=== PATIENT | female | born 1985 | race Caucasian/White ===

== ENCOUNTER 2018-03-17 01:24 | Inpatient (IN) | payer OTHER ==
[2018-03-17] MEDS ORDERED: Sodium Chloride 0.9% 10 ML Syringe FLUSH PRN (01:55)
[2018-03-17] MEDS ORDERED: Ampicillin 2 GM in Sodium Chloride 0.9% 100 ML IV ONE (02:00)
[2018-03-17] MEDS ORDERED: Oxytocin/Lactated Ringers 10 UNIT/1,000 ML BAG IV SCH (02:00)
[2018-03-17] MEDS ORDERED: Lactated Ringers 1,000 ML IV SCH (02:00)
--- NOTE | 2018-03-17 03:25 | PCM.LDHP ---
L&D History of Present Illness - General Date of Service: 03/17/18 Admit Problem/Dx: Patient Status Order with Admit Dx/Problem 03/17/18 01:55 Patient Status [ADT] Routine Admission Diagnosis/Problem Admission Diagnosis/Problem Source of Information: Patient History Limitations: Reports: No Limitations - History of Present Illness Introduction:: 32 -year-old 004 JASMIN 03/25/18 at 38 weeks 6 days estimated gestational age presented to labor and delivery 6 cm dilated with contractions every 3 minutes lasting approximately 60 seconds GBS positive antibiotics have been ordered patient may not be able to complete second course of antibiotics before delivery. Amniotomy performed at 0304 hrs. clear fluid cervix is 8 cm dilated. Blood type A positive. Antibody screen negative. Hemoglobin hematocrit on reported 36.9 hematocrit and hemoglobin 11.8 platelets 313,000. Rubella negative syphilis screen negative hepatitis B surface antigen negative HIV "normal" on 12/13/17 hemoglobin 12.1 platelets 308,000. One hour OB glucose screen 109. Antibody screen negative. GBS to take it on 02/21/18. Quality: Reports: Ache, Dull, Pressure Improves with: Reports: None Worsens with: Reports: None - Related Data Allergies/Adverse Reactions: Allergies Allergy/AdvReac Type Severity Reaction Status Date / Time red dye AdvReac Headache Verified 12/08/16 14:37 Home Medications: Home Meds Multivitamins [Childrens Chewable Vitamin] 1 tab PO DAILY 11/18/14 [History] Ibuprofen [IJD: Ibuprofen] 600 mg PO Q6H PRN #30 tablet 12/08/16 [Rx] Past Medical History HEENT History: Reports: None Genitourinary History: Reports: Other (See Below) Other Genitourinary History: Reccurent yeast infections [employer] History: Reports: - Past Surgical History HEENT Surgical History: Reports: Oral Surgery Female Surgical History: Reports: Other (See Below) Other Female Surgeries/Procedures: evacuation of a hematoma Social & Family History - Family History Family Medical History: Noncontributory - Tobacco Use Smoking Status *Q: Never Smoker Years of Tobacco use: 6 Used Tobacco, but Quit: Yes Month/Year Tobacco Last Used: Unk Second Hand Smoke Exposure: No - Caffeine Use Caffeine Use: Reports: None - Alcohol Use Days Per Week of Alcohol Use: 0 - Recreational Drug Use Recreational Drug Use: No H&P Review of Systems - Review of Systems: Review Of Systems: See Below General: Reports: No Symptoms HEENT: Reports: No Symptoms Pulmonary: Reports: No Symptoms Cardiovascular: Reports: No Symptoms Gastrointestinal: Reports: No Symptoms Genitourinary: Reports: No Symptoms Musculoskeletal: Reports: No Symptoms Skin: Reports: No Symptoms Psychiatric: Reports: No Symptoms Neurological: Reports: No Symptoms Hematologic/Lymphatic: Reports: No Symptoms Immunologic: Reports: No Symptoms L&D Exam - Exam Exam: See Below - Vital Signs Vital Signs: Last Vital Signs Temp 98.5 F 03/17/18 01:55 Pulse 70 03/17/18 01:55 Resp 16 03/17/18 01:55 BP 115/63 03/17/18 01:55 Pulse Ox Weight: 196 lb - OB Specific Fundal Height In cm: 39 Contraction Duration (sec): 60 Contraction Frequency (min): 3 Contraction Intensity: Moderate to Strong Movement: Active Heart Tones: Present Heart Tones per Min: 135 Heart Rate (FHR) Variability: Moderate (6-25 bmp) Presentation: Vertex - Ovalle Score Ovalle Score Cervix Position: Anterior Ovalle Score Consistency: Soft Ovalle Score Effacement: >80% Ovalle Score Dilation: > 5 cm Ovalle Score 's Station: -1 ,0 Ovalle Score Total: 12 - Exam General: Alert, Oriented HEENT: Conjunctiva Clear, Mucosa Moist & Warden, PERRLA Neck: Supple, Trachea Midline Lungs: Clear to Auscultation, Normal Respiratory Effort Cardiovascular: Regular Rate, Regular Rhythm GI/Abdominal Exam: Normal Bowel Sounds, Soft, Non-Tender, No Organomegaly, No Distention, No Abnormal Bruit, No Mass, Pelvis Stable Genitourinary: Normal external exam, Normal bimanual exam, Normal speculum exam Extremities: Normal Inspection, Normal Range of Motion, Non-Tender, No Pedal Edema, Normal Capillary Refill Skin: Warm, Dry, Intact Neurological: Reflexes Equal Bilateral Psychiatric: Alert, Normal Affect, Normal Mood - Patient Data Lab Results Last 24 hrs: Laboratory Results - last 24 hr 03/17/18 Range/Units 02:06 WBC 11.97 H (3.98-10.04) K/mm3 RBC 4.15 (3.98-5.22) M/mm3 Hgb 11.4 (11.2-15.7) gm/L Hct 34.4 (34.1-44.9) % MCV 82.9 (79.4-94.8) fl MCH 27.5 (25.6-32.2) pg MCHC 33.1 (32.2-35.5) g/dl RDW Std Deviation 40.3 (36.4-46.3) fL Plt Count 261 (182-369) K/mm3 MPV 8.9 L (9.4-12.3) fl Neut % (Auto) 71.7 H (34.0-71.1) % Lymph % (Auto) 20.0 (19.3-51.7) % [place] % (Auto) 7.3 (4.7-12.5) % Eos % (Auto) 0.6 L (0.7-5.8) Baso % (Auto) 0.1 (0.1-1.2) % Neut # (Auto) 8.60 H (1.56-6.13) K/mm3 Lymph # (Auto) 2.39 (1.18-3.74) K/mm3 [place] # (Auto) 0.87 H (0.24-0.36) K/mm3 Eos # (Auto) 0.07 (0.04-0.36) K/mm3 Baso # (Auto) 0.01 (0.01-0.08) K/mm3 Result Diagrams: 03/17/18 02:06 - Problem List (1) 38 weeks gestation of SNOMED Code(s): 97221037 ICD Code: Z3A.38 - 38 WEEKS GESTATION OF Status: Acute Current Visit: Yes (2) Positive GBS test SNOMED Code(s): 6493534393008, 6112259847533 ICD Code: B95.1 - STREPTOCOCCUS, GROUP B, CAUSING DISEASES CLASSD ELSWHR Status: Acute Current Visit: Yes Problem List Initiated/Reviewed/Updated: No Orders Last 24hrs: Active Orders 24 hr Category Date Time Status Patient Status [ADT] Routine ADT 03/17/18 01:55 Active Activity as Tolerated [RC] PFP Care 03/17/18 01:55 Active Communication Order [RC] ASDIRECTED Care 03/17/18 01:55 Active Heart Tones [RC] ASDIRECTED Care 03/17/18 01:56 Active Notify Provider [RC] PFP Care 03/17/18 01:55 Active Notify Provider [RC] PRN Care 03/17/18 01:55 Active Peripheral IV Care [RC] . DIRECTED Care 03/17/18 01:56 Active Vital Signs [RC] PER UNIT ROUTINE Care 03/17/18 01:55 Active Regular Diet [DIET] Diet 03/17/18 Breakfast Active Ampicillin 1 gm Med 03/17/18 06:00 Active Sodium Chloride 0.9% [Normal Saline] 100 ml IV Q4H Lactated Ringers [Ringers, Lactated] 1,000 ml Med 03/17/18 02:00 Active IV ASDIRECTED Oxytocin/Lactated Ringers [Pitocin in LR 10 Units/1,000 Med 03/17/18 02:00 Active ML] 10 unit in 1,000 ml IV .CONTINUOUS Sodium Chloride 0.9% [Saline Flush] Med 03/17/18 01:55 Active 10 ml FLUSH ASDIRECTED PRN Electronic Heart Tones Ext w TOCO [WOMSER] Oth 03/17/18 01:55 Ordered Routine Electronic Heart Tones Internal [WOMSER] Per Unit Oth 03/17/18 01:55 Ordered Routine Peripheral IV Insertion Adult [OM.PC] Routine Oth 03/17/18 01:55 Ordered Resuscitation Status Routine Resus Stat 03/17/18 01:55 Ordered Medication Orders Ampicillin Sodium 1 gm/ Sodium (Chloride) 100 mls @ 200 mls/hr IV Q4H SHIRLEY Lactated Ringer's (Ringers, Lactated) 1,000 mls @ 100 mls/hr IV ASDIRECTED SHIRLEY Oxytocin/Lactated Ringer's (Pitocin In Lr 10 Units/1,000 Ml) 10 unit in 1,000 mls @ 500 mls/hr IV .CONTINUOUS SHIRLEY Sodium Chloride (Saline Flush) 10 ml FLUSH ASDIRECTED PRN PRN Reason: Keep Vein Open Assessment/Plan Comment:: Plan delivery
--- NOTE | 2018-03-17 03:42 | PCM.DEL ---
L & D Note - General Info Date of Service: 03/17/18 Mother's Due Date: 03/25/18 - Delivery Note Labor: Spontaneous, Augmented by ARM Delivery Outcome: Livebirth (Female liveborn 0 327 on Saturday03/17/18 weight pending born MICAH nuchal cord times one Apgars 8/9) Delivery Method: Spontaneous Vaginal Delivery-Single Delivery Mode: Spontaneous Presentation: Left Occiput Anterior (MICAH) Nuchal Cord: Present (Reduced over the head) Prep: Povidone-Iodine (Betadine Anesthesia Type: None Episiotomy Type: None Laceration: None Placenta: Intact, Spontaneous (Delivered at 0329 hrs. Saturday03/17/18 velamentous insertion of the cord) Cord: 3 Vessels Estimated Blood Loss: 250 Resuscitation Needed: No : Suctioned, Bulb Syringe, Stimulated, Warmed, Enloe Used, Warmer Used Provider: Cleveland Osullivan Score 1 min: 8 Score 5 min: 9 - Patient Data Vitals - Most Recent: Last Vital Signs Temp 98.5 F 03/17/18 01:55 Pulse 70 03/17/18 01:55 Resp 16 03/17/18 01:55 BP 115/63 03/17/18 01:55 Pulse Ox Weight - Most Recent: 196 lb I&O - Last 24 Hours: Intake & Output 03/16/18 03/16/18 03/17/18 14:59 22:59 06:59 Intake Total 100 Balance 100 Lab Results Last 24 Hours: Laboratory Results - last 24 hr 03/17/18 Range/Units 02:06 WBC 11.97 H (3.98-10.04) K/mm3 RBC 4.15 (3.98-5.22) M/mm3 Hgb 11.4 (11.2-15.7) gm/L Hct 34.4 (34.1-44.9) % MCV 82.9 (79.4-94.8) fl MCH 27.5 (25.6-32.2) pg MCHC 33.1 (32.2-35.5) g/dl RDW Std Deviation 40.3 (36.4-46.3) fL Plt Count 261 (182-369) K/mm3 MPV 8.9 L (9.4-12.3) fl Neut % (Auto) 71.7 H (34.0-71.1) % Lymph % (Auto) 20.0 (19.3-51.7) % [place] % (Auto) 7.3 (4.7-12.5) % Eos % (Auto) 0.6 L (0.7-5.8) Baso % (Auto) 0.1 (0.1-1.2) % Neut # (Auto) 8.60 H (1.56-6.13) K/mm3 Lymph # (Auto) 2.39 (1.18-3.74) K/mm3 [place] # (Auto) 0.87 H (0.24-0.36) K/mm3 Eos # (Auto) 0.07 (0.04-0.36) K/mm3 Baso # (Auto) 0.01 (0.01-0.08) K/mm3 Med Orders - Current: Current Medications Ampicillin Sodium 1 gm/ Sodium (Chloride) 100 mls @ 200 mls/hr IV Q4H SHIRLEY Lactated Ringer's (Ringers, Lactated) 1,000 mls @ 100 mls/hr IV ASDIRECTED SHIRLEY Oxytocin/Lactated Ringer's (Pitocin In Lr 10 Units/1,000 Ml) 10 unit in 1,000 mls @ 500 mls/hr IV .CONTINUOUS SHIRLEY Sodium Chloride (Saline Flush) 10 ml FLUSH ASDIRECTED PRN PRN Reason: Keep Vein Open Discontinued Medications Ampicillin Sodium 2 gm/ Sodium (Chloride) 100 mls @ 200 mls/hr IV ONETIME ONE Stop: 03/17/18 02:29 Last Admin: 03/17/18 02:00 Dose: 200 mls/hr - Problem List & Annotations (1) 38 weeks gestation of SNOMED Code(s): 66618748 Code(s): Z3A.38 - 38 WEEKS GESTATION OF Status: Acute Current Visit: Yes (2) Positive GBS test SNOMED Code(s): 3155338556375, 0562316769288 Code(s): B95.1 - STREPTOCOCCUS, GROUP B, CAUSING DISEASES CLASSD ELSWHR Status: Acute Current Visit: Yes (3) Cord around neck-deliver SNOMED Code(s): 904781733 Code(s): O69.1XX0 - LABOR AND DELIVERY COMP BY CORD AROUND NECK, W COMPRSN, UNSP Status: Acute Current Visit: Yes (4) Velamentous insertion of umbilical cord in third trimester SNOMED Code(s): 86998967, 54685157 Code(s): O43.123 - VELAMENTOUS INSERTION OF UMBILICAL CORD, THIRD TRIMESTER Status: Acute Current Visit: Yes - Problem List Review Problem List Initiated/Reviewed/Updated: No - My Orders Last 24 Hours: My Active Orders 03/17/18 01:55 Patient Status [ADT] Routine Activity as Tolerated [RC] PFP Communication Order [RC] ASDIRECTED Notify Provider [RC] PFP Notify Provider [RC] PRN Vital Signs [RC] PER UNIT ROUTINE Sodium Chloride 0.9% [Saline Flush] 10 ml FLUSH ASDIRECTED PRN Electronic Heart Tones Ext w TOCO [WOMSER] Routine Electronic Heart Tones Internal [WOMSER] Per Unit Routine Peripheral IV Insertion Adult [OM.PC] Routine Resuscitation Status Routine 03/17/18 01:56 Heart Tones [RC] ASDIRECTED Peripheral IV Care [RC] . DIRECTED 03/17/18 02:00 Lactated Ringers [Ringers, Lactated] 1,000 ml IV ASDIRECTED Oxytocin/Lactated Ringers [Pitocin in LR 10 Units/1,000 ML] 10 unit in 1,000 ml IV .CONTINUOUS 03/17/18 06:00 Ampicillin 1 gm Sodium Chloride 0.9% [Normal Saline] 100 ml IV Q4H 03/17/18 Breakfast Regular Diet [DIET] - Plan Plan:: Plan delivery
[2018-03-17] MEDS ORDERED: Docusate Sodium 100 MG Cap PO PRN (03:49)
[2018-03-17] MEDS ORDERED: Lanolin 100% Cream 7 GM Tube TOP PRN (03:49)
[2018-03-17] MEDS ORDERED: Witch Hazel Medicated Pads 100/Jar TOP PRN (03:49)
[2018-03-17] MEDS ORDERED: Benzocaine/Menthol 20%-0.5% Spray 56 GM Canister TOP PRN (03:49)
[2018-03-17] MEDS ORDERED: Acetaminophen 325 MG Tab PO PRN (03:49)
[2018-03-17] MEDS ORDERED: Ampicillin 1 GM in Sodium Chloride 0.9% 100 ML IV SCH (06:00)
[2018-03-17] MEDS: Ibuprofen 600 MG Tab PO PRN ×2 (06:30→21:04)
--- NOTE | 2018-03-17 08:33 | PCM.SN ---
- Free Text/Narrative Note: exam Afebrile, chest clear, uterus at umbilicus -1. No heavy vaginal bleeding. No leg cramping.
[2018-03-17 21:59] VITALS: BP 115/58
--- NOTE | 2018-03-18 07:59 | PCM.DCSUM1 ---
Discharge Summary - Hospital Course Free Text/Narrative:: [facility] LIVE L/D Delivery Note Patient Name: MELISSA BERNAL Date of : 87 Patient Status: Inpatient Attending Provider: Cleveland Osullivan Date: 03/17/18 03:37 Initialization Date: 03/17/18 03:37 L & D Note - General Info Date of Service: 03/17/18 Mother's Due Date: 03/25/18 - Delivery Note Labor: Spontaneous, Augmented by ARM Delivery Outcome: Livebirth (Female liveborn 0 327 on Saturday03/17/18 weight pending born MICAH nuchal cord times one Apgars 8/9) Delivery Method: Spontaneous Vaginal Delivery-Single Infant Delivery Mode: Spontaneous Presentation: Left Occiput Anterior (MICAH) Nuchal Cord: Present (Reduced over the head) Prep: Povidone-Iodine (Betadine Anesthesia Type: None Episiotomy Type: None Laceration: None Placenta: Intact, Spontaneous (Delivered at 0329 hrs. Saturday03/17/18 velamentous insertion of the cord) Cord: 3 Vessels Estimated Blood Loss: 250 Resuscitation Needed: No : Suctioned, Bulb Syringe, Stimulated, Warmed, Matthews Used, Warmer Used Provider: Cleveland Osullivan Score 1 min: 8 Score 5 min: 9 - Patient Data Vitals - Most Recent: Last Vital Signs Temp 98.5 F 03/17/18 01:55 Pulse 70 03/17/18 01:55 Resp 16 03/17/18 01:55 BP 115/63 03/17/18 01:55 Pulse Ox Weight - Most Recent: 196 lb I&O - Last 24 Hours: Intake & Output 03/16/18 03/16/18 03/17/18 14:59 22:59 06:59 Intake Total 100 Balance 100 Lab Results Last 24 Hours: Laboratory Results - last 24 hr 03/17/18 Range/Units 02:06 WBC 11.97 H (3.98-10.04) K/mm3 RBC 4.15 (3.98-5.22) M/mm3 Hgb 11.4 (11.2-15.7) gm/L Hct 34.4 (34.1-44.9) % MCV 82.9 (79.4-94.8) fl MCH 27.5 (25.6-32.2) pg MCHC 33.1 (32.2-35.5) g/dl RDW Std Deviation 40.3 (36.4-46.3) fL Plt Count 261 (182-369) K/mm3 MPV 8.9 L (9.4-12.3) fl Neut % (Auto) 71.7 H (34.0-71.1) % Lymph % (Auto) 20.0 (19.3-51.7) % Gooding % (Auto) 7.3 (4.7-12.5) % Eos % (Auto) 0.6 L (0.7-5.8) Baso % (Auto) 0.1 (0.1-1.2) % Neut # (Auto) 8.60 H (1.56-6.13) K/mm3 Lymph # (Auto) 2.39 (1.18-3.74) K/mm3 Gooding # (Auto) 0.87 H (0.24-0.36) K/mm3 Eos # (Auto) 0.07 (0.04-0.36) K/mm3 Baso # (Auto) 0.01 (0.01-0.08) K/mm3 Med Orders - Current: Current Medications Ampicillin Sodium 1 gm/ Sodium (Chloride) 100 mls @ 200 mls/hr IV Q4H SHIRLEY Lactated Ringer's (Ringers, Lactated) 1,000 mls @ 100 mls/hr IV ASDIRECTED SHIRLEY Oxytocin/Lactated Ringer's (Pitocin In Lr 10 Units/1,000 Ml) 10 unit in 1,000 mls @ 500 mls/hr IV .CONTINUOUS SHIRLEY Sodium Chloride (Saline Flush) 10 ml FLUSH ASDIRECTED PRN PRN Reason: Keep Vein Open Discontinued Medications Ampicillin Sodium 2 gm/ Sodium (Chloride) 100 mls @ 200 mls/hr IV ONETIME ONE Stop: 03/17/18 02:29 Last Admin: 03/17/18 02:00 Dose: 200 mls/hr - Problem List & Annotations (1) 38 weeks gestation of SNOMED Code(s): 45779358 Code(s): Z3A.38 - 38 WEEKS GESTATION OF Status: Acute Current Visit: Yes (2) Positive GBS test SNOMED Code(s): 5424067907212, 4938153439624 Code(s): B95.1 - STREPTOCOCCUS, GROUP B, CAUSING DISEASES [facility]SD [facility] Status: Acute Current Visit: Yes (3) Cord around neck-deliver SNOMED Code(s): 510964736 Code(s): O69.1XX0 - LABOR AND DELIVERY COMP BY CORD AROUND NECK, W COMPRSN, UNSP Status: Acute Current Visit: Yes (4) Velamentous insertion of umbilical cord in third trimester SNOMED Code(s): 71492545, 41940433 Code(s): O43.123 - VELAMENTOUS INSERTION OF UMBILICAL CORD, THIRD TRIMESTER Status: Acute Current Visit: Yes - Problem List Review Problem List Initiated/Reviewed/Updated: No - My Orders Last 24 Hours: My Active Orders 03/17/18 01:55 Patient Status [ADT] Routine Activity as Tolerated [RC] PFP Communication Order [RC] ASDIRECTED Notify Provider [RC] PFP Notify Provider [RC] PRN Vital Signs [RC] PER UNIT ROUTINE Sodium Chloride 0.9% [Saline Flush] 10 ml FLUSH ASDIRECTED PRN Electronic Heart Tones Ext w TOCO [WOMSER] Routine Electronic Heart Tones Internal [WOMSER] Per Unit Routine Peripheral IV Insertion Adult [OM.PC] Routine Resuscitation Status Routine 03/17/18 01:56 Heart Tones [RC] ASDIRECTED Peripheral IV Care [RC] . DIRECTED 03/17/18 02:00 Lactated Ringers [Ringers, Lactated] 1,000 ml IV ASDIRECTED Oxytocin/Lactated Ringers [Pitocin in LR 10 Units/1,000 ML] 10 unit in 1,000 ml IV .CONTINUOUS 03/17/18 06:00 Ampicillin 1 gm Sodium Chloride 0.9% [Normal Saline] 100 ml IV Q4H 03/17/18 Breakfast Regular Diet [DIET] - Plan Plan:: Plan delivery HPI Initial Comments: [facility] LIVE L/D Delivery Note Patient Name: MELISSA BERNAL Date of : 87 Patient Status: Inpatient Attending Provider: Cleveland Osullivan Date: 03/17/18 03:37 Initialization Date: 03/17/18 03:37 L & D Note - General Info Date of Service: 03/17/18 Mother's Due Date: 03/25/18 - Delivery Note Labor: Spontaneous, Augmented by ARM Delivery Outcome: Livebirth (Female liveborn 0 327 on Saturday03/17/18 weight pending born MICAH nuchal cord times one Apgars 8/9) Infant Delivery Method: Spontaneous Vaginal Delivery-Single Delivery Mode: Spontaneous Presentation: Left Occiput Anterior (MICAH) Nuchal Cord: Present (Reduced over the head) Prep: Povidone-Iodine (Betadine Anesthesia Type: None Episiotomy Type: None Laceration: None Placenta: Intact, Spontaneous (Delivered at 0329 hrs. Saturday03/17/18 velamentous insertion of the cord) Cord: 3 Vessels Estimated Blood Loss: 250 Resuscitation Needed: No : Suctioned, Bulb Syringe, Stimulated, Warmed, Matthews Used, Warmer Used Provider: Cleveland Osullivan Score 1 min: 8 Score 5 min: 9 - Patient Data Vitals - Most Recent: Last Vital Signs Temp 98.5 F 03/17/18 01:55 Pulse 70 03/17/18 01:55 Resp 16 03/17/18 01:55 BP 115/63 03/17/18 01:55 Pulse Ox Weight - Most Recent: 196 lb I&O - Last 24 Hours: Intake & Output 03/16/18 03/16/18 03/17/18 14:59 22:59 06:59 Intake Total 100 Balance 100 Lab Results Last 24 Hours: Laboratory Results - last 24 hr 03/17/18 Range/Units 02:06 WBC 11.97 H (3.98-10.04) K/mm3 RBC 4.15 (3.98-5.22) M/mm3 Hgb 11.4 (11.2-15.7) gm/L Hct 34.4 (34.1-44.9) % MCV 82.9 (79.4-94.8) fl MCH 27.5 (25.6-32.2) pg MCHC 33.1 (32.2-35.5) g/dl RDW Std Deviation 40.3 (36.4-46.3) fL Plt Count 261 (182-369) K/mm3 MPV 8.9 L (9.4-12.3) fl Neut % (Auto) 71.7 H (34.0-71.1) % Lymph % (Auto) 20.0 (19.3-51.7) % Gooding % (Auto) 7.3 (4.7-12.5) % Eos % (Auto) 0.6 L (0.7-5.8) Baso % (Auto) 0.1 (0.1-1.2) % Neut # (Auto) 8.60 H (1.56-6.13) K/mm3 Lymph # (Auto) 2.39 (1.18-3.74) K/mm3 [place] # (Auto) 0.87 H (0.24-0.36) K/mm3 Eos # (Auto) 0.07 (0.04-0.36) K/mm3 Baso # (Auto) 0.01 (0.01-0.08) K/mm3 Med Orders - Current: Current Medications Ampicillin Sodium 1 gm/ Sodium (Chloride) 100 mls @ 200 mls/hr IV Q4H SHIRLEY Lactated Ringer's (Ringers, Lactated) 1,000 mls @ 100 mls/hr IV ASDIRECTED SHIRLEY Oxytocin/Lactated Ringer's (Pitocin In Lr 10 Units/1,000 Ml) 10 unit in 1,000 mls @ 500 mls/hr IV .CONTINUOUS SHIRLEY Sodium Chloride (Saline Flush) 10 ml FLUSH ASDIRECTED PRN PRN Reason: Keep Vein Open Discontinued Medications Ampicillin Sodium 2 gm/ Sodium (Chloride) 100 mls @ 200 mls/hr IV ONETIME ONE Stop: 03/17/18 02:29 Last Admin: 03/17/18 02:00 Dose: 200 mls/hr - Problem List & Annotations (1) 38 weeks gestation of SNOMED Code(s): 36978989 Code(s): Z3A.38 - 38 WEEKS GESTATION OF Status: Acute Current Visit: Yes (2) Positive GBS test SNOMED Code(s): 0147770699239, 9406842652778 Code(s): B95.1 - STREPTOCOCCUS, GROUP B, CAUSING DISEASES CLASSD [facility] Status: Acute Current Visit: Yes (3) Cord around neck-deliver SNOMED Code(s): 866749032 Code(s): O69.1XX0 - LABOR AND DELIVERY COMP BY CORD AROUND NECK, W COMPRSN, UNSP Status: Acute Current Visit: Yes (4) Velamentous insertion of umbilical cord in third trimester SNOMED Code(s): 88605993, 09917832 Code(s): O43.123 - VELAMENTOUS INSERTION OF UMBILICAL CORD, THIRD TRIMESTER Status: Acute Current Visit: Yes - Problem List Review Problem List Initiated/Reviewed/Updated: No - My Orders Last 24 Hours: My Active Orders 03/17/18 01:55 Patient Status [ADT] Routine Activity as Tolerated [RC] PFP Communication Order [RC] ASDIRECTED Notify Provider [RC] PFP Notify Provider [RC] PRN Vital Signs [RC] PER UNIT ROUTINE Sodium Chloride 0.9% [Saline Flush] 10 ml FLUSH ASDIRECTED PRN Electronic Heart Tones Ext w TOCO [WOMSER] Routine Electronic Heart Tones Internal [WOMSER] Per Unit Routine Peripheral IV Insertion Adult [OM.PC] Routine Resuscitation Status Routine 03/17/18 01:56 Heart Tones [RC] ASDIRECTED Peripheral IV Care [RC] . DIRECTED 03/17/18 02:00 Lactated Ringers [Ringers, Lactated] 1,000 ml IV ASDIRECTED Oxytocin/Lactated Ringers [Pitocin in LR 10 Units/1,000 ML] 10 unit in 1,000 ml IV .CONTINUOUS 03/17/18 06:00 Ampicillin 1 gm Sodium Chloride 0.9% [Normal Saline] 100 ml IV Q4H 03/17/18 Breakfast Regular Diet [DIET] - Plan Plan:: Plan delivery Brief History: [facility] LIVE . L/D Delivery Note. Patient Name: Lauri BERNAL Record Number: [id number]. Date of : 87Patient Status: Inpatient. Attending Provider: Cleveland Osullivan Number: [id number]. Date: 03/17/18 03:37Initialization Date: 03/17/18 03:37. L & D Note. - General Info. Date of Service: 03/17/18. Mother's Due Date: . - Delivery Note. Labor: Spontaneous, Augmented by ARM. Delivery Outcome: Livebirth (Female liveborn 0 327 on Saturday03/17/18 weight pending born MICAH nuchal cord times one Apgars 8/9). Infant Delivery Method: Spontaneous Vaginal Delivery-Single. Delivery Mode: Spontaneous. Presentation: Left Occiput Anterior (MICAH). Nuchal Cord: Present (Reduced over the head). Prep: Povidone-Iodine (Betadine. Anesthesia Type: None. Episiotomy Type: None. Laceration: None. Placenta: Intact, Spontaneous (Delivered at 0329 hrs. Saturday03/17/18 velamentous insertion of the cord). Cord: 3 Vessels. Estimated Blood Loss: 250. Resuscitation Needed: No. : Suctioned, Bulb Syringe, Stimulated, Warmed, Matthews Used, Warmer Used. Provider: Cleveland Osullivan. Score 1 min: 8. Score 5 min: 9. - Patient Data. Vitals - Most Recent: Last Vital Signs. Temp 98.5 F 03/17/18 01:55. Pulse 70 03/17/18 01:55. Resp 16 03/17/18 01:55. BP 115/63 03/17/18 01:55. Pulse Ox. Weight - Most Recent: 196 lb. I&O - Last 24 Hours: Intake & Output. 03/16/1804. 14:5922:[id number]:59. Intake Ghnlb626. [id number]. Lab Results Last 24 Hours: Laboratory Results - last 24 hr. 03/17Range/Units. 02:06. WBC 11.97 H (3.98-10.04) K/mm3. RBC 4.15 (3.98-5.22) M/mm3. Hgb 11.4 (11.2-15.7) gm/L. Hct 34.4 (34.1-44.9) %. MCV 82.9 (79.4- 94.8) fl. MCH 27.5 (25.6-32.2) pg. MCHC 33.1 (32.2-35.5) g/dl. RDW Std Deviation 40.3 (36.4-46.3) fL. Plt Count 261 (182-369) K/mm3. MPV 8.9 L (9.4 -12.3) fl. Neut % (Auto) 71.7 H (34.0-71.1) %. Lymph % (Auto) 20.0 (19.3- 51.7) %. Gooding % (Auto) 7.3 (4.7-12.5) %. Eos % (Auto) 0.6 L (0.7-5.8). Baso % (Auto) 0.1 (0.1-1.2) %. Neut # (Auto) 8.60 H (1.56-6.13) K/mm3. Lymph # (Auto) 2.39 (1.18-3.74) K/mm3. Gooding # (Auto) 0.87 H (0.24-0.36) K/ mm3. Eos # (Auto) 0.07 (0.04-0.36) K/mm3. Baso # (Auto) 0.01 (0.01-0.08) K/ mm3. Med Orders - Current: Current Medications. Ampicillin Sodium 1 gm/ Sodium (Chloride) 100 mls @ 200 mls/hr IV Q4H SHIRLEY. Lactated Ringer's (Ringers , Lactated) 1,000 mls @ 100 mls/hr IV ASDIRECTED SHIRLEY. Oxytocin/Lactated Ringer 's (Pitocin In Lr 10 Units/1,000 Ml) 10 unit in 1,000 mls @ 500 mls/hr IV .CONTINUOUS SHIRLEY. Sodium Chloride (Saline Flush) 10 ml FLUSH ASDIRECTED PRN. PRN Reason: Keep Vein Open. Discontinued Medications. Ampicillin Sodium 2 gm/ Sodium (Chloride) 100 mls @ 200 mls/hr IV ONETIME ONE. Stop: 03/17/18 02:29. Last Admin: 03/17/18 02:00 Dose: 200 mls/hr. - Problem List & Annotations. (1 ) 38 weeks gestation of . SNOMED Code(s): 75898406. Code(s): Z3A.38 - 38 WEEKS GESTATION OF Status: Acute Current Visit: Yes. (2) Positive GBS test. SNOMED Code(s): 3860621698692, 3337870330452. Code(s): B95.1 - STREPTOCOCCUS, GROUP B, CAUSING DISEASES CLASSD ELSWHR Status: Acute Current Visit: Yes. (3) Cord around neck-deliver. SNOMED Code(s): 958471888. Code(s): O69.1XX0 - LABOR AND DELIVERY COMP BY CORD AROUND NECK, W COMPRSN, UNSP Status: Acute Current Visit: Yes. (4) Velamentous insertion of umbilical cord in third trimester. SNOMED Code(s): 88631039, 98194861. Code (s): O43.123 - VELAMENTOUS INSERTION OF UMBILICAL CORD, THIRD TRIMESTER Status : Acute Current Visit: Yes. - Problem List Review. Problem List Initiated/ Reviewed/Updated: No. - My Orders. Last 24 Hours: My Active Orders. 01:55. Patient Status [ADT] Routine. Activity as Tolerated [RC] PFP. Communication Order [RC] ASDIRECTED. Notify Provider [RC] PFP. Notify Provider [RC] PRN. Vital Signs [RC] PER UNIT ROUTINE. Sodium Chloride 0.9% [ Saline Flush] 10 ml FLUSH ASDIRECTED PRN. Electronic Heart Tones Ext w TOCO [WOMSER] Routine. Electronic Heart Tones Internal [WOMSER] Per Unit Routine. Peripheral IV Insertion Adult [OM.PC] Routine. Resuscitation Status Routine. 03/17/18 01:56. Heart Tones [RC] ASDIRECTED. Peripheral IV Care [RC] . DIRECTED. 03/17/18 02:00. Lactated Ringers [Ringers, Lactated] 1 ,000 ml IV ASDIRECTED. Oxytocin/Lactated Ringers [Pitocin in LR 10 Units/1,000 ML] 10 unit in 1,000 ml IV .CONTINUOUS. 03/17/18 06:00. Ampicillin 1 gm Sodium Chloride 0.9% [Normal Saline] 100 ml IV Q4H. 03/17/18 Breakfast. Regular Diet [DIET]. - Plan. Plan:: Plan delivery - Discharge Data Discharge Date: 03/18/18 Discharge Disposition: Home, Self-Care 01 Condition: Good - Discharge Diagnosis/Problem(s) (1) 38 weeks gestation of SNOMED Code(s): 67994065 ICD Code: Z3A.38 - 38 WEEKS GESTATION OF Status: Acute Current Visit: Yes (2) Positive GBS test SNOMED Code(s): 3490715749607, 6040334665971 ICD Code: B95.1 - STREPTOCOCCUS, GROUP B, CAUSING DISEASES CLASSD ELSWHR Status: Acute Current Visit: Yes (3) Cord around neck-deliver SNOMED Code(s): 915706854 ICD Code: O69.1XX0 - LABOR AND DELIVERY COMP BY CORD AROUND NECK, W COMPRSN, UNSP Status: Acute Current Visit: Yes (4) Velamentous insertion of umbilical cord in third trimester SNOMED Code(s): 55778858, 91483886 ICD Code: O43.123 - VELAMENTOUS INSERTION OF UMBILICAL CORD, THIRD TRIMESTER Status: Acute Current Visit: Yes - Patient Summary/Data Complications: none Consults: none Hospital Course: uneventful - Patient Instructions Diet: Regular Diet as Tolerated Driving: Do Not Drive (48 hours) Showering/Bathing: May Shower Notify Provider of: Fever, Increased Pain, Swelling and Redness, Drainage, Nausea and/or Vomiting - Discharge Plan Home Medications: Home Meds Multivitamins [Childrens Chewable Vitamin] 1 tab PO DAILY 11/18/14 [History] Ibuprofen [IJD: Ibuprofen] 600 mg PO Q6H PRN #30 tablet 12/08/16 [Rx] Acetaminophen [Tylenol] 650 mg PO Q4H PRN tablet 03/18/18 [Rx] Benzocaine/Menthol [Dermoplast Pain Relief [place]] 1 spray TOP ASDIRECTED PRN canister 03/18/18 [Rx] Docusate Sodium [Colace] 100 mg PO BID PRN cap 03/18/18 [Rx] Ibuprofen [IJD: Ibuprofen] 600 mg PO Q4H PRN tablet 03/18/18 [Rx] Lanolin [Lansinoh HPA] 1 applic TOP ASDIRECTED PRN tube 03/18/18 [Rx] Referrals: Marry Schmidt MD [Physician] - (Patient will call for appointment.) - Discharge Summary/Plan Comment DC Time >30 min.: No - Patient Data Vitals - Most Recent: Last Vital Signs Temp 98.1 F 03/17/18 20:39 Pulse 69 03/17/18 20:39 Resp 18 03/17/18 20:39 BP 115/58 L 03/17/18 20:39 Pulse Ox 98 03/17/18 20:39 Weight - Most Recent: 196 lb I&O - Last 24 hours: Intake & Output 03/17/18 03/18/18 03/18/18 22:59 06:59 14:59 Intake Total 880 Balance 880 Lab Results - Last 24 hrs: Laboratory Results - last 24 hr 03/17/18 Range/Units 12:26 WBC 17.34 H (3.98-10.04) K/mm3 RBC 4.02 (3.98-5.22) M/mm3 Hgb 11.0 L (11.2-15.7) gm/L Hct 33.2 L (34.1-44.9) % MCV 82.6 (79.4-94.8) fl MCH 27.4 (25.6-32.2) pg MCHC 33.1 (32.2-35.5) g/dl RDW Std Deviation 39.4 (36.4-46.3) fL Plt Count 272 (182-369) K/mm3 MPV 8.7 L (9.4-12.3) fl Neut % (Auto) 81.7 H (34.0-71.1) % Lymph % (Auto) 11.7 L (19.3-51.7) % Gooding % (Auto) 5.9 (4.7-12.5) % Eos % (Auto) 0.3 L (0.7-5.8) Baso % (Auto) 0.1 (0.1-1.2) % Neut # (Auto) 14.18 H (1.56-6.13) K/mm3 Lymph # (Auto) 2.03 (1.18-3.74) K/mm3 [place]ing # (Auto) 1.02 H (0.24-0.36) K/mm3 Eos # (Auto) 0.05 (0.04-0.36) K/mm3 Baso # (Auto) 0.01 (0.01-0.08) K/mm3 Med Orders - Current: Current Medications Acetaminophen (Tylenol) 650 mg PO Q4H PRN PRN Reason: mild pain or fever Benzocaine/Menthol (Dermoplast Pain Relief [place]) 0 gm TOP ASDIRECTED PRN PRN Reason: Perineal Comfort Measure Docusate Sodium (Colace) 100 mg PO BID PRN PRN Reason: Constipation Emollient Ointment (Lansinoh Hpa) 0 gm TOP ASDIRECTED PRN PRN Reason: Sore Nipples Ibuprofen (Motrin) 600 mg PO Q4H PRN PRN Reason: Mild pain or fever Last Admin: 03/17/18 21:04 Dose: 600 mg Witch Julee (Tucks) 1 pad TOP ASDIRECTED PRN PRN Reason: Hemorrhoid pain Discontinued Medications Ampicillin Sodium 2 gm/ Sodium (Chloride) 100 mls @ 200 mls/hr IV ONETIME ONE Stop: 03/17/18 02:29 Last Admin: 03/17/18 02:00 Dose: 200 mls/hr Ampicillin Sodium 1 gm/ Sodium (Chloride) 100 mls @ 200 mls/hr IV Q4H SHIRLEY Lactated Ringer's (Ringers, Lactated) 1,000 mls @ 100 mls/hr IV ASDIRECTED SHIRLEY Oxytocin/Lactated Ringer's (Pitocin In Lr 10 Units/1,000 Ml) 10 unit in 1,000 mls @ 500 mls/hr IV .CONTINUOUS SHIRLEY Sodium Chloride (Saline Flush) 10 ml FLUSH ASDIRECTED PRN PRN Reason: Keep Vein Open
== END 2018-03-18 10:45 | disposition home or self-care (01) | DRG 775 ==
LOC: JD.OBCHECK 01:24 → JD.OB 01:34 → JD.OBCHECK 01:55 → JD.OB 02:19 → OBSVTOIN 03:27 → JD.OB 03:28
PROVIDERS: ADMIT Obstetrics & Gynecology; ATTEND Obstetrics & Gynecology
PROC: 10907ZC Drainage of Amniotic Fluid, Therapeutic from Products of Conception, Via Natural or Artificial Opening (ICD-10-PCS; principal; 2018-03-17)
PROC: 10E0XZZ Delivery of Products of Conception, External Approach (ICD-10-PCS; principal; 2018-03-17)
DX: O99.824 Streptococcus B carrier state complicating childbirth (principal); O69.81X0 Labor and delivery complicated by cord around neck, without compression, not applicable or unspecified; Z37.0 Single live birth; O43.123 Velamentous insertion of umbilical cord, third trimester; Z3A.38 38 weeks gestation of pregnancy; Z88.8 Allergy status to other drugs, medicaments and biological substances; Z87.891 Personal history of nicotine dependence
CPT/HCPCS: 36415; 59025; 59409; 85025; A9270-GY; J0290; J7030

== ENCOUNTER 2018-03-22 03:36 | Emergency (ER) | payer OTHER ==
[2018-03-22 03:48] VITALS: BP 124/94
--- NOTE | 2018-03-22 04:10 | EDM.PDOC ---
ED HPI GENERAL MEDICAL PROBLEM - General Chief Complaint: Abdominal Pain Stated Complaint: UNABLE TO HAVE A BOWEL MOVEMENT Time Seen by Provider: 03/22/18 04:04 Source of Information: Reports: Patient History Limitations: Reports: No Limitations - History of Present Illness INITIAL COMMENTS - FREE TEXT/NARRATIVE: This is a 32-year-old female. She awoke around 1 AM this morning to feed her baby and felt the urge to go to the bathroom and had severe lower abdominal pain and cramps got very anxious about this and comes to the ER for evaluation. She had her baby vaginally on Saturday and realized she hadn't had a bowel movement by . She did drink some tea and had a mild bowel movement and also took some mag citrate and had a mild loose stool on Saturday morning but has had no bowel movement since then. She is drinking a lot of fluids she is breast- feeding. She denies any fever or chills or nausea or vomiting. She denies any urinary tract type symptoms. When she was having severe lower abdominal cramping she had a little more blood come out of her vagina than normal. She denies any other acute symptoms. Lower Abdomen Pain Score (Numeric/FACES): 5 - Related Data Allergies Allergy/AdvReac Type Severity Reaction Status Date / Time red dye AdvReac Headache Verified 03/22/18 03:48 Home Meds: Home Meds Multivitamins [Childrens Chewable Vitamin] 1 tab PO DAILY 11/18/14 [History] Ibuprofen [IJD: Ibuprofen] 600 mg PO Q6H PRN #30 tablet 12/08/16 [Rx] Acetaminophen [Tylenol] 650 mg PO Q4H PRN tablet 03/18/18 [Rx] Benzocaine/Menthol [Dermoplast Pain Relief [place]] 1 spray TOP ASDIRECTED PRN canister 03/18/18 [Rx] Docusate Sodium [Colace] 100 mg PO BID PRN cap 03/18/18 [Rx] Ibuprofen [IJD: Ibuprofen] 600 mg PO Q4H PRN tablet 03/18/18 [Rx] Lanolin [Lansinoh HPA] 1 applic TOP ASDIRECTED PRN tube 03/18/18 [Rx] Past Medical History HEENT History: Reports: None Genitourinary History: Reports: Other (See Below) Other Genitourinary History: Reccurent yeast infections [employer] History: Reports: - Past Surgical History HEENT Surgical History: Reports: Oral Surgery Female Surgical History: Reports: Other (See Below) Other Female Surgeries/Procedures: evacuation of a hematoma Social & Family History - Family History Family Medical History: Noncontributory - Tobacco Use Smoking Status *Q: Former Smoker Years of Tobacco use: 6 Used Tobacco, but Quit: Yes Month/Year Tobacco Last Used: 10 Second Hand Smoke Exposure: No - Caffeine Use Caffeine Use: Reports: None - Alcohol Use Days Per Week of Alcohol Use: 0 - Recreational Drug Use Recreational Drug Use: No ED ROS GENERAL - Review of Systems Review Of Systems: See Below Constitutional: Denies: Fever, Chills HEENT: Reports: No Symptoms Respiratory: Reports: No Symptoms Cardiovascular: Reports: No Symptoms Endocrine: Reports: No Symptoms GI/Abdominal: Reports: Abdominal Pain, Constipation, Diarrhea. Denies: Nausea, Vomiting : Reports: Discharge Musculoskeletal: Reports: No Symptoms Skin: Reports: No Symptoms Neurological: Reports: No Symptoms Psychiatric: Reports: No Symptoms Hematologic/Lymphatic: Reports: No Symptoms ED EXAM, GI/ABD - Physical Exam Exam: See Below Exam Limited By: No Limitations General Appearance: Alert, WD/WN, No Apparent Distress Eyes: Bilateral: Normal Appearance Ears: Normal External Exam Nose: Normal Inspection Throat/Mouth: Normal Inspection, Normal Lips, Normal Voice, No Airway Compromise Head: Normocephalic Neck: Supple Respiratory/Chest: No Respiratory Distress, Lungs Clear, Normal Breath Sounds Cardiovascular: Regular Rate, Rhythm, No Murmur GI/Abdominal Exam: Soft, Non-Tender, Other (No masses are noted no organomegaly or her lower abdomen is sore but having no cramping at this time there is no rigidity there is no distention) Rectal (Female) Exam: Deferred Back Exam: Full Range of Motion Extremities: Normal Inspection, Normal Range of Motion Neurological: Alert, Oriented Psychiatric: Normal Affect, Normal Mood Skin Exam: Warm, Dry Course - Vital Signs Last Recorded V/S: Last Vital Signs Temp 98.4 F 03/22/18 03:43 Pulse 73 03/22/18 03:43 Resp 18 03/22/18 03:43 BP 124/94 H 03/22/18 03:43 Pulse Ox 100 03/22/18 03:43 - Orders/Labs/Meds Orders: Active Orders 24 hr Category Date Time Status Enema [RC] ASDIRECTED Care 03/22/18 05:13 Active KUB [Abdomen 1V Flat] [CR] Stat Exams 03/22/18 04:04 Taken - Radiology Interpretation Free Text/Narrative:: KUB shows lots of stool and maybe even a mild rectal impaction. - Re-Assessments/Exams Free Text/Narrative Re-Assessment/Exam: 03/22/18 05:23 I spoke to the patient and the regarding the x-ray results. We went ahead and did a soapsuds enema with 500 mL and she had a very good output of stool and she felt like the plug that was there resolved and she is feeling much better and doesn't want the remaining 500 mL of enema. She wants to go home. We talked about drinking lots of fluids and going to the bathroom as soon as you feel the urge so you don't get plugged up. Departure - Departure Time of Disposition: 05:24 Disposition: Home, Self-Care 01 Condition: Good Clinical Impression: Constipation Qualifiers: Constipation type: unspecified constipation type Qualified Code(s): K59.00 - Constipation, unspecified - Discharge Information Referrals: Marry Schmidt MD [Primary Care Provider] - Forms: ED Department Discharge Additional Instructions: Continue to drink lots of water, get the Anuja-Colace and take one tablet twice a day until your stools are very soft and then just take 1 tablet a day, recheck with your OB doctor as scheduled, return to the ER if needed - My Orders Last 24 Hours: My Active Orders 03/22/18 04:04 KUB [Abdomen 1V Flat] [CR] Stat 03/22/18 05:13 Enema [RC] ASDIRECTED - Assessment/Plan Last 24 Hours: My Active Orders 03/22/18 04:04 KUB [Abdomen 1V Flat] [CR] Stat 03/22/18 05:13 Enema [RC] ASDIRECTED
--- NOTE | 2018-03-23 07:56 | CR ---
Abdomen: Supine view of the abdomen was obtained. Comparison: No prior abdominal x-ray, previous CT abdomen and pelvis exam dated 05/11/12. Mild increased stool is seen throughout the colon. Bowel gas pattern is otherwise unremarkable. There is a calcification seen within the left side of the pelvis most likely representing phlebolith. No soft tissue abnormality is seen. Bony structures are unremarkable. Impression: 1. Slight increased stool within the colon. Nothing acute is seen. Diagnostic code #2
== END 2018-03-22 05:33 | disposition home or self-care (01) ==
LOC: JD.ED 03:36
DX: K59.00 Constipation, unspecified (principal); Z91.048 Other nonmedicinal substance allergy status; Z87.891 Personal history of nicotine dependence
CPT/HCPCS: 74018; 74018-26; 99283

== ENCOUNTER 2022-01-26 08:45 | Emergency (ER) | payer BC ==
[2022-01-26 08:59] VITALS: BP 148/100; PULSE 86
== END 2022-01-26 10:16 | disposition home or self-care (01) ==
LOC: JD.ED 08:45
DX: R10.9 Unspecified abdominal pain (principal)
CPT/HCPCS: 74018; 74018-26; 99283; 99284

== ENCOUNTER 2023-03-05 06:51 | Inpatient (IN) | payer BC ==
[2023-03-05] MEDS ORDERED: Ondansetron 4 MG/2 ML SDV IVPUSH PRN (07:46)
[2023-03-05] MEDS ORDERED: Nalbuphine 10 MG/0.5 ML Syringe IVPUSH PRN (07:46)
[2023-03-05] MEDS ORDERED: Lactated Ringers 1,000 ML IV SCH (08:00)
[2023-03-05] MEDS ORDERED: Oxytocin/Lactated Ringers 10 UNIT/1,000 ML BAG IV SCH ×2 (08:00→10:30)
[2023-03-05] MEDS ORDERED: Ampicillin 2 GM in Sodium Chloride 0.9% 100 ML IV ONE (08:30)
[2023-03-05] MEDS ORDERED: Sodium Chloride 0.9% 10 ML Syringe FLUSH SCH (09:00)
[2023-03-05] MEDS ORDERED: diphenhydrAMINE 50 MG/ML SDV IVPUSH PRN (11:20)
[2023-03-05] MEDS ORDERED: fentaNYL 100 MCG/2 ML SDV EPIDUR PRN (11:20)
[2023-03-05] MEDS ORDERED: Bupivacaine/fentaNYL/NS 100 ML Bag EPIDUR PRN (11:20)
[2023-03-05] MEDS ORDERED: ePHEDrine 50 MG/ML SDV IVPUSH PRN (11:20)
[2023-03-05] MEDS ORDERED: Ampicillin 1 GM in Sodium Chloride 0.9% 100 ML IV SCH (12:30)
[2023-03-05] MEDS ORDERED: Benzocaine/Menthol 20%-0.5% Spray 78 GM Cannister TOP PRN (15:09)
[2023-03-05] MEDS ORDERED: Ibuprofen 600 MG Tab PO PRN (15:09)
[2023-03-05] MEDS ORDERED: Witch Hazel Medicated Pads 40/Jar TOP PRN (15:09)
[2023-03-05] MEDS ORDERED: Acetaminophen 325 MG Tab PO PRN (15:09)
[2023-03-06 15:33] VITALS: BP 121/74; PULSE 87
== END 2023-03-06 15:00 | disposition home or self-care (01) | DRG 560 ==
LOC: JD.OB 06:51 → OBSVTOIN 13:34 → JD.OB 13:34
PROVIDERS: ADMIT Obstetrics & Gynecology; ATTEND Obstetrics & Gynecology
PROC: 10E0XZZ Delivery of Products of Conception, External Approach (ICD-10-PCS; principal; 2023-03-05)
PROC: 10907ZC Drainage of Amniotic Fluid, Therapeutic from Products of Conception, Via Natural or Artificial Opening (ICD-10-PCS; 2023-03-05)
PROC: 3E033VJ Introduction of Other Hormone into Peripheral Vein, Percutaneous Approach (ICD-10-PCS; 2023-03-05)
DX: O99.02 Anemia complicating childbirth (principal); O99.824 Streptococcus B carrier state complicating childbirth; D64.9 Anemia, unspecified; Z3A.38 38 weeks gestation of pregnancy; Z37.0 Single live birth; Z91.041 Radiographic dye allergy status; Z87.891 Personal history of nicotine dependence
CPT/HCPCS: 36415; 59025; 59409; 85025; 86592; 86850; 86900; 86901; J0290; J2590; J3490; J7120